=== PATIENT | female | born 1955 | race Caucasian/White ===

== ENCOUNTER 2021-01-19 08:21 | Outpatient (CLI) | payer MEDICARE, SELFPAY ==
--- NOTE | ~2021-01-19 | CT_ITS ---
EXAMINATION: CT abdomen wo/w con DATE: 01/19/2021 09:20 INDICATION: Renal mass TECHNIQUE: Computed tomography (CT) of the abdomen and pelvis was performed without and with 100 mL O mnipaque-350 intravenous contrast. Automated exposure control and iterative reconstruction technique were employed. The dose-length product was 1859.89 mGy-cm. COMPARISON: None FINDINGS: Lung bases are clear. Heart size is normal. Atherosclerotic coronary artery calcification and aortic valve calcification. No pericardial or pleural effusion. Small sliding-type hiatal hernia. Postoperat fitz change of prior adjustable lap banding which is in expected position with phi angle of 47 degrees . Diffuse hepatic steatosis. Gallbladder, spleen, pancreas and right adrenal gland are normal. 1.3 cm low-attenuation left adrenal adenoma. Irregularly-shaped 2.2 x 1.3 cm peripherally calcified central ly low attenuation nonenhancing likely partially collapsed renal cyst at the anterior margin of the r ight kidney. Left kidney is normal. Symmetric renal parenchymal enhancement with no urolithiasis or h ydronephrosis. Several diverticula along the visualized proximal descending colon without adjacent fr om 3 change to suggest diverticulitis. No bowel obstruction. No pathologically enlarged abdominal lym phadenopathy. Moderate lower thoracic and severe lumbar spondylosis. IMPRESSION: 1. Partially collapsed, rim calcified Bosniak 2 right renal cyst. 2. Diffuse hepatic steatosis. 3. Moderate diverticulosis. 4. Small sliding-type hiatal hernia with postoperative change of adjustable gastric banding procedure . Reviewed, dictated and finalized at location A. IMPRESSION: 1. Partially collapsed, rim calcified Bosniak 2 right renal cyst. 2. Diffuse hepatic steatosis. 3. Moderate diverticulosis. 4. Small sliding-type hiatal hernia with postoperative change of adjustable gas tric banding procedure.
[2021-01-19 11:41] LABS: Estimated Glomerular Filt Rate > 60
== END 2021-01-19 08:22 | disposition home or self-care (01) ==
PROVIDERS: Visit Provider Urology
DX: N28.1 Cyst of kidney, acquired (principal); K76.0 Fatty (change of) liver, not elsewhere classified; K57.30 Diverticulosis of large intestine without perforation or abscess without bleeding; K44.9 Diaphragmatic hernia without obstruction or gangrene
CPT/HCPCS: 74170; Q9967

== ENCOUNTER 2022-11-07 06:53 | Outpatient (CLI) | payer MEDICARE, SELFPAY ==
--- NOTE | ~2022-11-07 | CT_ITS ---
EXAMINATION: CT abdomen wo/w con DATE: 11/07/2022 07:56 INDICATION: Renal mass TECHNIQUE: Computed tomography (CT) of the abdomen and pelvis was performed without and with 100 mL O mnipaque-350 intravenous contrast. Automated exposure control and iterative reconstruction technique were employed. The dose-length product was 1977.08 mGy-cm. COMPARISON: 01/19/2021 FINDINGS: Small calcified right middle lobe nodule consistent with old granulomatous disease. Heart size is nor mal. Atherosclerotic coronary artery calcific location and aortic valve calcification. No pericardial or pleural effusion. Small sliding-type hiatal hernia. Adjustable gastric banding procedure in expec ailyn position with phi angle of 53 degrees. Diffuse hepatic steatosis. Gallbladder, spleen, pancreas a nd right adrenal gland are normal. 1.3 cm low-attenuation left adrenal adenoma. The left kidney is no rmal. No interval change in an irregularly-shaped 2.1 x 1.3 cm peripherally calcified centrally low a ttenuation and nonenhancing likely partially collapsed renal cyst at the anterior margin of the right kidney. Scattered colonic diverticula without adjacent inflammatory stranding to suggest diverticuli tis. No bowel obstruction. No pathologically enlarged abdominal lymphadenopathy. Moderate thoracic an d severe lumbar spondylosis. IMPRESSION: 1. No interval change in a likely partially collapse rim calcified Bosniak 2 right renal cyst. 2. Diffuse hepatic steatosis. 3. Moderate diverticulosis. 4. Small sliding-type hiatal hernia with expected appearance of an adjustable gastric banding procedu re. Reviewed, dictated and finalized at location A. IMPRESSION: 1. No interval change in a likely partially collapse rim calcified Bosniak 2 ri ght renal cyst. 2. Diffuse hepatic steatosis. 3. Moderate diverticulosis. 4. Small sliding-type hiatal hernia with expected appearance of an adjustable g astric banding procedure.
[2022-11-07 07:34] LABS: Estimated Glomerular Filt Rate > 60
== END 2022-11-07 06:54 | disposition home or self-care (01) ==
PROVIDERS: Visit Provider Urology
DX: N28.89 Other specified disorders of kidney and ureter (principal); K76.0 Fatty (change of) liver, not elsewhere classified; K57.30 Diverticulosis of large intestine without perforation or abscess without bleeding; K44.9 Diaphragmatic hernia without obstruction or gangrene
CPT/HCPCS: 74170; Q9967